=== PATIENT | female | born 1940 | race Caucasian/White ===

== ENCOUNTER → 2017-10-31 | Outpatient (CLI) | payer BC ==
[~2017-10-31] MED LIST: ALBU90OI INH; DIPATR PO; FLUSAL1005 INH; FLUSAL5005 INH; K-Dur10 MEQ PO; ONDA4ODT PO; POTA10T PO; Zofran Odt4 MG PO
[2017-11-01 14:31] LABS: Stool Occult Bld Immuno 1 Negative (NEGATIVE)
== END ==
LOC: LAB EV 10:00
PROVIDERS: Physician Assistant
DX: R93.8 Abnormal findings on diagnostic imaging of other specified body structures (principal)
CPT/HCPCS: 82274

== ENCOUNTER → 2017-11-06 | Outpatient (CLI) | payer BC | END | disposition home or self-care (01) | LOC: LAB EV 14:14 → LAB SHORT 14:14 | DX: N39.0 Urinary tract infection, site not specified (principal) | CPT/HCPCS: 87086 ==

== ENCOUNTER 2017-12-15 11:51 | Day surgery (SDC) | payer BC ==
[2017-12-15] MEDS ORDERED: AMLO5 PO (14:58)
[2017-12-15] MEDS ORDERED: CYAN500 PO (14:59)
== END 2017-12-15 13:55 | disposition home or self-care (01) ==
LOC: ATC 11:51
DX: N17.9 Acute kidney failure, unspecified (principal); I10 Essential (primary) hypertension; E78.5 Hyperlipidemia, unspecified; D64.9 Anemia, unspecified; E87.6 Hypokalemia; E83.52 Hypercalcemia; R94.4 Abnormal results of kidney function studies
CPT/HCPCS: 96360; J7030

== ENCOUNTER 2018-08-20 08:57 | Day surgery (SDC) | payer BC ==
[~2018-08-20 08:57] MED LIST changes: +AMLO5 PO; +CYAN500 PO
== END 2018-08-20 22:44 | disposition home or self-care (01) ==
LOC: MOI US 08:57 → MOI MAM 09:00 → MOI US 09:00
PROC: 0HBT3ZX Excision of Right Breast, Percutaneous Approach, Diagnostic (ICD-10-PCS; principal; 2018-08-20)
DX: C50.911 Malignant neoplasm of unspecified site of right female breast (principal); Z17.0 Estrogen receptor positive status [ER+]
CPT/HCPCS: 19083; 77065; 88305; 88342; 88360; A4648; G0279

== ENCOUNTER 2018-09-10 08:27 | Day surgery (SDC) | payer BC | END 2018-09-10 22:42 | disposition home or self-care (01) | LOC: MOI US 08:27 | DX: C50.411 Malignant neoplasm of upper-outer quadrant of right female breast (principal) | CPT/HCPCS: 19285; 77065 ==

== ENCOUNTER 2018-09-13 09:32 | Day surgery (SDC) | payer BC ==
[~2018-09-13] VITALS: Ht 165.1 cm; Wt 65.8 kg
--- NOTE | 2018-09-13 11:58 | NUR ---
Ambulatory in Day Surgery Surgical site prepped with 2% Chlorhexidine cloth wipe. History, Chart, Medications and Allergies reviewed before start of procedure.Lungs clear T/O to Auscultation. Patient confirms NPO status and agrees with scheduled surgery EXCEPT FOR A SIP OF WATER WITH B/P PILLS. DAUGHTER IN LAW AT BEDSIDE.
--- NOTE | 2018-09-13 12:00 | NUR ---
REPORT TO ESTHELA CHRSITY.
--- NOTE | 2018-09-13 13:04 | NUR ---
09/13/18 1304 Leatha Yap 2 GRAMS GIVEN IV IN L[facility] BY DR MARTINEZ AT 1232
--- NOTE | 2018-09-13 16:23 | NUR ---
Patient up to Ambulate independently. Gait steady. Discharge instructions reviewed with patient. Patient verbalizes understanding. Copy given to patient to take home. Patient States Post-Procedure ride home has been arranged. Discharged via wheelchair to private car for ride home.
== END 2018-09-13 12:00 | disposition home or self-care (01) ==
LOC: RAD 09:32 → ORSCMMR 09:33 → NM 10:30 → RAD 12:00
DX: C50.411 Malignant neoplasm of upper-outer quadrant of right female breast (principal); Z17.0 Estrogen receptor positive status [ER+]
CPT/HCPCS: 38792; 76098; A9520; J0690; J1100; J1885; J2405; J3010; J7120; Q9968

== ENCOUNTER → 2022-07-18 | Outpatient (CLI) | payer BC | END | disposition home or self-care (01) | LOC: LAB 14:27 → LAB SHORT 14:27 | DX: N39.0 Urinary tract infection, site not specified (principal) | CPT/HCPCS: 87086 ==